=== PATIENT | female | born 1970 | race Caucasian/White ===

== ENCOUNTER 2017-10-25 19:00 | Emergency (ER) | payer BC, OTHER ==
--- NOTE | 2017-10-25 19:24 | EDPHY ---
HPI/HX/ROS/PE/MDM Narrative: CHIEF COMPLAINT: Abdominal pain HISTORY OF PRESENT ILLNESS: The patient is a 47 y/o female complaining of abdominal pain and general malaise for 20 hours. On Monday, 3 days ago, she returned home from [facility]. While travelling in [facility] she had a mild case of diarrhea and took an Imodium. She has had no further diarrhea but has continued to have mild abdominal pain, distension, and bloating. Last night the abdominal cramping began. Patient feels like she is very constipated, bloated, and having crampy discomfort. No diarrhea. At 16:00, 3.5 hours ago, she did an enema which only provided mild relief for a short amount of time. Tonight before she arrived to the ED, she had a fever of 100.6 at home. She has been unable to have a bowel movement today. Passing gas provides mild momentary relief. No vomiting. Denies history of abdominal surgery. No chills, chest pain, shortness of breath , palpitations, vomiting, urinary complaints, headache, lightheadedness. REVIEW OF SYSTEMS: Aside from elements discussed in the HPI, a comprehensive 10-point review of systems was reviewed and is negative. PAST MEDICAL HISTORY: Prophylactic mastectomy, ankle repair, SOCIAL HISTORY: at bedside, lives in [place], works for [employer] VITAL SIGNS: Reviewed by me GENERAL: Well-developed, well-nourished, lying on her side, appears uncomfortable. HEENT: Atraumatic. Eyes: No icterus, no injection. Mouth: moist mucous membranes. No erythema or lesions. Neck: supple with no adenopathy. LUNGS: Clear to auscultation bilaterally, no wheezes, rhonchi or rales. CARDIAC: Regular rate and rhythm, no rubs, murmurs or gallops. ABDOMEN: Diffuse tenderness, mild distension, high-pitched bowel sounds. No guarding or rebound. BACK: No CVA tenderness. EXTREMITIES: No trauma. No edema. Range of motion is normal throughout. NEURO: Alert and oriented, grossly nonfocal. SKIN: Warm and dry, no rash. PSYCHIATRIC: Normal mentation, no agitation. Portions of this note were transcribed by a medical care manager. I personally performed a history, physical exam, medical decision making, and confirmed accuracy of information the transcribed note. ED Course: The patient is a 47 y/o female presenting with worsening abdominal pain and bloating. She had developed some abdominal discomfort and mild diarrhea while in [facility]. She returned home 3 days ago and has had persistent mild pain until last night. On exam she has diffuse tenderness, distension, and high- pitched bowel sounds. Labs ordered. 1L IV NS, 75mcg IV Fentanyl, and 4mg IV Zofran administered. 2049: Reassessed patient, she is feeling mildly better after Fentanyl. She still has a distended abdomen. Plan on abdominopelvic CT. Patient's CT demonstrates a gastric dilatation, dilatation of the small large bowel with scattered fluid and stool. No obstruction. No focal infection. Evaluation discussed with the patient. Given her history of fever and travel, will provide the patient with 3 day course of ciprofloxacin. Treated with simethicon and Bentyl in the emergency department as well as discharged with instructions to use these as needed for discomfort. Also advised the patient of the enlarged uterus. She states this is a known finding and will follow up with her hydrometallurgical engineer. MDM: After obtaining the patient's history and performing an examination, differential diagnosis considered included but was not limited to gastroenteritis, diverticulitis, gastritis, intraabdominal processes including appendicitis, pancreatitis, bowel obstruction and medication side effect. - Data Points Imaging Results: Imaging Impressions Abdomen CT 10/25/17 20:57 Impression: 1. Above findings may represent gastroenteritis. The pylorus is edematous though probably not obstructed given the amount of gas and fluid in the small bowel. 2. Enlarged uterus. Recommend pelvic ultrasound to evaluate for abnormal endometrial thickening and/or fibroids. 3. Possible left Bartholin gland cyst. Dr. Tang discussed these findings by telephone with Yoselin Garcia MD on 10/25/2017 at 21:32. Imaging: Discussed imaging studies w/ call or contact centre coach Radiologist Laboratory Results: Laboratory Results 10/25/17 19:50 10/25/17 19:50 Medications Given: Discontinued Medications Dicyclomine HCl (Bentyl) 20 mg PO EDNOW ONE Stop: 10/25/17 21:46 Last Admin: 10/25/17 21:54 Dose: 20 mg Fentanyl (Sublimaze) 75 mcg IVP EDNOW ONE Stop: 10/25/17 19:42 Last Admin: 10/25/17 20:08 Dose: 75 mcg Hydromorphone HCl (Dilaudid) 0.5 mg IVP EDNOW ONE Stop: 10/25/17 21:46 Last Admin: 10/25/17 21:54 Dose: 0.5 mg Sodium Chloride (Ns) 1,000 mls @ 0 mls/hr IV EDNOW ONE; Wide Open PRN Reason: Protocol Stop: 10/25/17 19:42 Last Admin: 10/25/17 20:08 Dose: 1,000 mls Sodium Chloride (Ns) 1,000 mls @ 0 mls/hr IV ONCE ONE; Wide Open PRN Reason: Protocol Stop: 10/25/17 21:23 Last Admin: 10/25/17 21:30 Dose: 1,000 mls Ondansetron HCl (Zofran) 4 mg IVP EDNOW ONE Stop: 10/25/17 19:42 Last Admin: 10/25/17 20:08 Dose: 4 mg Simethicone (Mylicon) 80 mg PO EDNOW ONE Stop: 10/25/17 21:46 Last Admin: 10/25/17 21:53 Dose: 80 mg General Time Seen by Provider: 10/25/17 19:21 Initial Vital Signs: Initial Vital Signs Temperature (C) 36.9 C 10/25/17 19:08 Heart Rate 83 10/25/17 19:08 Respiratory Rate 18 10/25/17 19:08 Blood Pressure 110/66 10/25/17 19:08 O2 Sat (%) 96 10/25/17 19:08 O2 Delivery Mode Room Air O2 (L/minute) 2 Allergies/Adverse Reactions: meperidine HCl [From Demerol] Adverse Reaction (Verified 01/17/14 11:24) Vomiting Home Medications: Medication Instructions Recorded Acyclovir 10/25/17 Sprintec 28 Day Tablet 10/25/17 Departure - Departure Disposition: Home, Routine, Self-Care Clinical Impression: Abdominal discomfort, Suspect gastroenteritis Condition: Good Instructions: Gastroenteritis (ED), Acute Abdominal Pain (ED), Gas and Bloating (ED) Additional Instructions: I suggest that you begin taking the ciprofloxacin. 500 mg by mouth 2 times a day for 3 days. Okay to use hydrocodone if needed for severe pain. Okay to take Zofran as needed for ongoing nausea. For your abdominal pain, I suggested you start with a bland diet and advance as tolerated. This means start with clear liquids such as water, Gatorade, juice, flat non- caffeinated soda. If you tolerate clear liquids, then you may add bland foods such as bananas, rice, or toast. If you do not have any worsening of your symptoms, you may begin to resume a regular diet. Gas-X or simethicon may be helpful for your discomfort. Return to the emergency department or seek care urgently if your symptoms are worsening. Okay to take Tylenol as needed for fever. Referrals: Antione Fontaine PA [Primary Care Provider] - As per Instructions Report Scribed for: Yoselin Garcia Report Scribed by: Nabila Walsh Date of Report: 10/25/17 Time of Report: 19:24
[2017-10-25] MEDS ORDERED: ONDANSETRON 4 MG/2 ML VIAL IVP ONE (19:41)
[2017-10-25] MEDS ORDERED: fentaNYL 100 MCG/2 ML INJ IVP ONE (19:41)
[2017-10-25] MEDS ORDERED: NS 1,000 ML IV ONE ×2 (19:41→21:22)
[2017-10-25 20:01] LABS: % IMMATURE GRANULYOCYTES 0.4 % (0.0-1.1); ABSOLUTE IMMATURE GRANULOCYTES 0.04 10^3/uL (0.00-0.10); ADD DIFF? NO; ADD MORPH? NO; ADD SCAN? NO; ATYPICAL LYMPHOCYTE FLAG 0 (0-99); FRAGMENT RBC FLAG 0 (0-99); HEMATOCRIT 42.1 % (38.0-47.0); HEMOGLOBIN 14.5 g/dL (12.6-16.3); LEFT SHIFT FLG 0 (0-99); LIPEMIA HEMOLYSIS FLAG 90 (0-99); MEAN CELL HEMOGLOBIN 34.9 pg (27.9-34.1); MEAN CELL HEMOGLOBIN CONCENTR. 34.4 g/dL (32.4-36.7); MEAN CELL VOLUME 101.2 fL (81.5-99.8); MEAN PLATELET VOLUME 10.4 fL (8.7-11.7); PLATELET CLUMPS FLAG 0 (0-99); PLATELET COUNT 219 10^3/uL (150-400); RED BLOOD CELL COUNT 4.16 10^6/uL (4.18-5.33); RED CELL DISTRIBUTION WIDTH 13.8 % (11.5-15.2)
[2017-10-25 20:09] LABS: ALANINE AMINOTRANSFERASE 48 IU/L (9-52); ALBUMIN 3.8 g/dL (3.5-5.0); ALKALINE PHOSPHATASE 66 IU/L (38-126); ANION GAP 13 mEq/L (8-16); ASPARTATE AMINOTRANSFERASE 27 IU/L (14-46); BILIRUBIN,TOTAL 0.9 mg/dL (0.1-1.4); BILIRUBIN-CONJUGATED 0.1 mg/dL (0.0-0.5); BILIRUBIN-UNCONJUGATED 0.8 mg/dL (0.0-1.1); CALCIUM 9.6 mg/dL (8.5-10.4); CARBON DIOXIDE 22 mEq/l (22-31); CHLORIDE 105 mEq/L (97-110); CREATININE 0.8 mg/dL (0.6-1.0); GLOMERULAR FILTRATION RATE > 60; GLUCOSE 100 mg/dL (70-100); POTASSIUM 3.7 mEq/L (3.5-5.2); SODIUM 140 mEq/L (134-144); TOTAL PROTEIN 6.5 g/dL (6.3-8.2)
[2017-10-25] MEDS ORDERED: IOPAMIDOL (ISOVUE-300) 100 ML BTL ONE (21:01)
[2017-10-25] MEDS ORDERED: HYDROmorphONE/DILAUDID 1 MG/ML INJ IVP ONE (21:45)
[2017-10-25] MEDS ORDERED: SIMETHICONE 80 MG TAB CHEW PO ONE (21:45)
[2017-10-25] MEDS ORDERED: DICYCLOMINE 10 MG CAP PO ONE (21:45)
[2017-10-25 22:23] VITALS: BP 101/63; RESP 16
[2017-10-25 22:24] VITALS: PULSE 66; TEMP 98.2; O2SAT 95
== END 2017-10-25 22:25 | disposition home or self-care (01) ==
DX: R10.84 Generalized abdominal pain (principal); E86.9 Volume depletion, unspecified
CPT/HCPCS: 96374; J1170; J2405; J3010; Q9967